=== PATIENT | male | born 1950 | race African-American/Black ===

== ENCOUNTER 2017-10-25 13:14 | Inpatient (IN) | payer MEDICARE, OTHER ==
[~2017-10-25] VITALS: Ht 170.2 cm; Wt 71.2 kg
--- NOTE | 2017-10-25 13:40 | NUR ---
PATIENT TO ED DT LEFT EYE AND TEMPORAL PAIN, DOUBLE/BLURRY VISION SINCE 10/20/17. PATIENT DENIES NAUSEA AND VOMITTING. NO WEAKNESS NOTED. SKIN IS WARM TO TOUCH AND NON DIAPHORETIC. AFEBRILE./ VSS
[2017-10-25 14:54] LABS: BASOPHILS % (AUTO) 0.7 % (0.0-2.0); EOSINOPHILS # (AUTO) 0.2 /CMM (0.0-0.7); EOSINOPHILS % (AUTO) 3.3 % (0.0-6.0); HEMATOCRIT 44 % (39-51); HEMOGLOBIN 14.8 g/dL (13.5-17.5); LYMPHOCYTES # (AUTO) 3.1 /CMM (0.8-4.8); LYMPHOCYTES % (AUTO) 58.5 % (20.0-44.0); MEAN CORPUSCULAR HEMOGLOBIN 30 PG (26.0-33.0); MEAN CORPUSCULAR HGB CONC 34 g/dl (31.0-36.0); MEAN CORPUSCULAR VOLUME 88 fL (80-96); MONOCYTES # (AUTO) 0.3 /CMM (0.1-1.30); MONOCYTES % (AUTO) 4.7 % (2.0-12.0); NEUTROPHILS # (AUTO) 1.8 /CMM (1.8-8.9); NEUTROPHILS % (AUTO) 32.8 % (43.0-81.0); PLATELET COUNT (AUTO) 177 /CMM (150-450); RDW COEFFICIENT OF VARIATION 12.7 (11.5-15.0); WHITE BLOOD COUNT (AUTO) 5.4 K/uL (4.3-11.0)
[2017-10-25] MEDS ORDERED: TETRACAINE HCL/PF 0.5% UD 2 ML BOTTLE OP ONE (15:00)
[2017-10-25] MEDS ORDERED: TETRACAINE HCL/PF 0.5% UD 2 ML BOTTLE ONE (15:17)
[2017-10-25 15:34] LABS: ALANINE AMINOTRANSFERASE 24 U/L (12-78); ALBUMIN 4.2 g/dL (3.4-5.0); ALKALINE PHOSPHATASE 81 U/L (46-116); ASPARTATE AMINOTRANSFERASE 25 U/L (15-37); BILIRUBIN,TOTAL 0.8 mg/dL (0.2-1.0); C-REACTIVE PROTEIN < 0.2 mg/dL (0.0-0.9); CALCIUM, SERUM 9.1 mg/dL (8.5-10.1); CARBON DIOXIDE 30 mmol/L (21-32); CHLORIDE 102 mmol/L (98-107); CREATININE 0.9 mg/dL (0.6-1.3); GLUCOSE 179 mg/dL (74-106); SODIUM SERUM 139 mmol/L (136-145); TOTAL PROTEIN, SERUM 8.7 g/dL (6.4-8.2); UREA NITROGEN, BLOOD 12 mg/dL (7-18)
[2017-10-25] MEDS ORDERED: IOHEXOL-350 100 ML VIAL IV ONE (16:18)
--- NOTE | 2017-10-25 17:09 | NUR ---
TEXTED DR. RUIZ FOR MRI APPROVAL.
--- NOTE | 2017-10-25 17:17 | NUR ---
CALLED PULLING UNIT OPERATOR/TEXTED NO RESPONSE YET.
--- NOTE | 2017-10-25 17:48 | NUR ---
BEHAVIORAL HEALTH TECH WILL BE IN AT 7PM.
--- NOTE | 2017-10-25 18:25 | NUR ---
Patient is resting comfortably in bed with eyes closed. Easily aroused. VSS
--- NOTE | 2017-10-25 18:25 | NUR ---
Patient is resting comfortably in bed with eyes closed. Easily aroused. VSS
--- NOTE | 2017-10-25 19:41 | NUR ---
PT IS BACK FROM MRI
[2017-10-25] MEDS ORDERED: ASPIRIN 81 MG TAB.CHEW ONE (20:59)
[2017-10-25] MEDS ORDERED: ASPIRIN 81 MG TAB.CHEW PO ONE (21:00)
--- NOTE | 2017-10-25 21:32 | NUR ---
REPORT GIVEN TO JOHN ESTRADA FOR CAROLYN
[2017-10-25 21:46] VITALS: BP 154/85
--- NOTE | 2017-10-25 21:58 | NUR ---
PT TRANSPORTED TO [facility]
[2017-10-25 22:00] VITALS: BP 154/85
--- NOTE | 2017-10-25 22:00 | NUR ---
RN NOTES ADMITTED A 67 YEAR OLD MALE FROM ER VIA STRETCHER ACCOMPANIED BY 2 STAFF. NO DISTRESS NOTED. BREATHING EVEN AND UNLABORED. COMPLAINING OF LEFT EYE BLURREDNESS WITH PAIN, ACHING 4/10. ALERT AND ORIENTED, VERBALLY ABLE TO COMMUNICATE NEEDS. AMBULATORY. ON ROOM AIR WITH O2 SATURATION OF 98%. VITAL SIGNS WNL. KEPT CLEAN AND DRY. WILL CONTINUE TO MONITOR.
[2017-10-26] VITALS (9 sets, daily range): BP systolic 112–154; BP diastolic 59–85
[2017-10-26] MEDS ORDERED: MAGNESIUM HYDROXIDE 30 ML UDC PO PRN (00:30)
[2017-10-26] MEDS ORDERED: ZOLPIDEM TARTRATE 5 MG TABLET PO PRN (00:30)
[2017-10-26] MEDS ORDERED: ONDANSETRON HCL/PF 4 MG/2 ML VIAL IVP PRN (00:30)
[2017-10-26] MEDS ORDERED: HYDROCODONE/APAP 5/325MG 1 EACH TABLET PO PRN (00:30)
[2017-10-26] MEDS ORDERED: ACETAMINOPHEN 325 MG TABLET PO PRN (00:30)
[2017-10-26] MEDS ORDERED: Z GUARD REMEDY 2 OZ OINT TP PRN (00:30)
[2017-10-26] MEDS: BLOOD SUGAR DIAGNOSTIC 1 EACH STRIP IN SCH ×4 (05:25→22:26)
[2017-10-26 06:27] LABS: BASOPHILS % (AUTO) 0.9 % (0.0-2.0); EOSINOPHILS # (AUTO) 0.2 /CMM (0.0-0.7); EOSINOPHILS % (AUTO) 4.5 % (0.0-6.0); HEMATOCRIT 42 % (39-51); LYMPHOCYTES # (AUTO) 3.3 /CMM (0.8-4.8); LYMPHOCYTES % (AUTO) 65.6 % (20.0-44.0); MEAN CORPUSCULAR HEMOGLOBIN 30 PG (26.0-33.0); MEAN CORPUSCULAR HGB CONC 34 g/dl (31.0-36.0); MEAN CORPUSCULAR VOLUME 90 fL (80-96); MONOCYTES # (AUTO) 0.3 /CMM (0.1-1.30); NEUTROPHILS # (AUTO) 1.2 /CMM (1.8-8.9); PLATELET COUNT (AUTO) 158 /CMM (150-450); RDW COEFFICIENT OF VARIATION 13.5 (11.5-15.0); RED BLOOD CELL COUNT(AUTO) 4.63 MIL/uL (4.5-6.0)
--- NOTE | 2017-10-26 06:35 | NUR ---
RN CLOSING NOTES RESTING COMFORTABLY IN BED. NO DISTRESS NOTED. PAIN LEVEL WENT DOWN TO 2/10. VITAL SIGNS WNL. NO SIGNIFICANT CHANGE OF CONDITION. WILL ENDORSE TO AM SHIFT FOR CONTINUITY OF CARE.
[2017-10-26 06:51] LABS: CALCIUM, SERUM 8.6 mg/dL (8.5-10.1); POTASSIUM 4.2 mmol/L (3.5-5.1)
[2017-10-26 07:02] LABS: THYROID STIMULATING HORMONE 2.786 uIU/mL (0.358-3.74)
[2017-10-26 07:13] LABS: ALBUMIN 3.4 g/dL (3.4-5.0); BILIRUBIN,TOTAL 0.8 mg/dL (0.2-1.0); TOTAL PROTEIN, SERUM 7.5 g/dL (6.4-8.2)
--- NOTE | 2017-10-26 07:33 | NUR ---
PUBLICITY AGENT OPENING NOTES RECEIVED PT AWAKE IN BED IN NO ACUTE SIGNS OF DISTRESS. A/O X4. ABLE TO MAKE NEEDS KNOWN AND VERBALIZED MILD DISCOMFORTS ON LEFT EYE. PT ON TELE-MONITORING WITH CURRENT READING OF SR AND HR OF 61, NO C/O CHEST PAIN VOICED. ON ROOM AIR, BREATHING EVEN AND UNLABORED. IV ACCESS ON LEFT AC G# 18 INTACT AND PATENT. BED IN LOW AND LOCKED POSITION. CALL LIGHT WITHIN REACH. WILL CONTINUE TO MONITOR PT ACCORDINGLY.
[2017-10-26] MEDS: ASPIRIN 81 MG TAB.CHEW PO SCH (08:42)
[2017-10-26] MEDS ORDERED: CARB15DR3 EACHEYE (10:15)
[2017-10-26] MEDS ORDERED: ATEN50TA PO (10:15)
[2017-10-26] MEDS ORDERED: ASPI-1169 PO (10:15)
--- NOTE | 2017-10-26 13:29 | NUR ---
RN NOTES DR DAVID ON UNIT AND REPORTED THAT PT IS GETTING MEDICATION AT HOME FOR HTN. ASKED HER ALSO IF PT CAN HAVE DVT PROPHYLAXIS AND SAID THAT SHE WILL CHECK, EVALUATE AND TALK TO PT FIRST. WILL FOLLOW-UP
[2017-10-26] MEDS ORDERED: hydrALAZINE HCL 25 MG TABLET PO PRN (15:00)
--- NOTE | 2017-10-26 15:51 | NUR ---
Social service consult requested by TAYLA Curtis for possible stroke. Pt. is a 67 year old male who is alert and oriented x 4. Pt. is cooperative and pleasant with SW during the assessment. Pt. resides alone. Pt. was independent with his ADL's prior to hospitalization. Pt. was also seen by PT and pt. continues to be independent with his ADL's. Pt. denies any depression or anxiety at this time. Pt. appears to be in good spirits. Pt. seems to have impaired vision which limits his ambulation. Pt. will be discharged home once medically cleared since pt. has no skilled needs at this time. No other social service needs are requested at this time. SW is available, if needed.
--- NOTE | 2017-10-26 18:56 | NUR ---
MS RN OPENING NOTES PT AWAKE AND RESTING AT MODERATE HIGH BACKREST IN BED. A/O X4, SAME ABLE TO MAKE NEEDS KNOWN. NO SIGNIFICANT CHANGES OF STATUS NOTED THROUGHOUT THE DAY. ALL NEEDS AND CARE ATTENDED WELL. ON ROOM AIR, BREATHING EVEN AND UNLABORED, NO ACUTE RESPIRATORY DISTRESS NOTED. IV ACCESS ON LEFT AC G# 18 INTACT AND PATENT, FLUSHES WELL. KEPT BED IN LOW AND LOCKED POSITION. CALL LIGHT AND BEDSIDE TABLE WITHIN EASY REACH OF PT.WILL ENDORSED TO SENIOR CORPORATE RECRUITER NURSE FOR CAROLYN. Addendum: 10/26/17 at 1903 by ALAN RIVERO RN ERROR: SHOULD BE MS RN CLOSING NOTES.
--- NOTE | 2017-10-26 19:03 | NUR ---
MS RN CLOSING NOTES PT AWAKE AND RESTING AT MODERATE HIGH BACKREST IN BED. A/O X4, SAME ABLE TO MAKE NEEDS KNOWN. NO SIGNIFICANT CHANGES OF STATUS NOTED THROUGHOUT THE DAY. ALL NEEDS AND CARE ATTENDED WELL. ON ROOM AIR, BREATHING EVEN AND UNLABORED, NO ACUTE RESPIRATORY DISTRESS NOTED. IV ACCESS ON LEFT AC G# 18 INTACT AND PATENT, FLUSHES WELL. KEPT BED IN LOW AND LOCKED POSITION. CALL LIGHT AND BEDSIDE TABLE WITHIN EASY REACH OF PT.WILL ENDORSED TO ELECTRIC MOTOR ASSEMBLER AND TESTER NURSE FOR CAROLYN.
--- NOTE | 2017-10-26 19:25 | NUR ---
MS /VOCATIONAL REHABILITATION TECHNICIAN; RECEIVED PT IN BED AWAKE, ALERT AND ORIENTED COHERENTLY RESPONSIVE. DENIES ANY PAIN. BED ON LOWER POSITION AND LOCKED FOR SAFETY. SIDE RAILS X2 ARE UP FOR SAFETY. WILL CONTINUE TO MONITOR. CALL LIGHT WITHIN REACH.
[2017-10-26] MEDS ORDERED: DEXTROSE 50%-WATER 50 ML DISP.SYRIN IV PRN (22:00)
[2017-10-26] MEDS ORDERED: ATORVASTATIN 10 MG TABLET PO SCH (22:00)
[2017-10-26] MEDS: METFORMIN 500 MG TABLET PO SCH (22:00)
--- NOTE | 2017-10-26 22:00 | NUR ---
MS/BENDER HAND; BS 256 . ON GLUCOPHAGE GIVEN.
--- NOTE | 2017-10-26 22:00 | NUR ---
MS/SEASONAL CLERK; GLUCOPHAGE 500 MG 1 TAB. PO BID NOT GIVEN. INSTEAD THE NEW ORDER OF GLUCOPHAGE 500 MG 1 TAB. PO X 1 WAS GIVEN
--- NOTE | 2017-10-26 22:02 | NUR ---
Patient is alert, he lives alone locally in the upper apartment with no elevator access. Prior to admission, he was ambulatory and independent with adl's. Has no DME or homehealth reported. Current plan is to return home once discharge. Addendum: 10/26/17 at 2203 by DON YOUNG RN Amended: Links added.
[2017-10-26] MEDS ORDERED: METFORMIN 500 MG TABLET PO ONE (22:30)
--- NOTE | 2017-10-27 | NUR ---
MS/TRAY CHECKER; BS 253 COVERAGE REGULAR INSULIN 6 UNITS SQ NOT GIVEN PT REFUSED. ASKING SANDWICH GIVEN.
[2017-10-27] MEDS: BLOOD SUGAR DIAGNOSTIC 1 EACH STRIP IN SCH ×7 (00:08→17:24)
--- NOTE | 2017-10-27 06:30 | NUR ---
MS/BEAN SORTER; BS 223 REGULAR INSULIN 4 UNITS SQ PT REFUSED IT.
[2017-10-27 06:33] LABS: EOSINOPHILS # (AUTO) 0.2 /CMM (0.0-0.7); EOSINOPHILS % (AUTO) 4.6 % (0.0-6.0); HEMATOCRIT 42 % (39-51); HEMOGLOBIN 14.2 g/dL (13.5-17.5); LYMPHOCYTES # (AUTO) 2.9 /CMM (0.8-4.8); LYMPHOCYTES % (AUTO) 65.8 % (20.0-44.0); MEAN CORPUSCULAR HEMOGLOBIN 30 PG (26.0-33.0); MEAN CORPUSCULAR HGB CONC 34 g/dl (31.0-36.0); MEAN CORPUSCULAR VOLUME 89 fL (80-96); MONOCYTES # (AUTO) 0.2 /CMM (0.1-1.30); MONOCYTES % (AUTO) 5.7 % (2.0-12.0); NEUTROPHILS % (AUTO) 22.9 % (43.0-81.0); PLATELET COUNT (AUTO) 151 /CMM (150-450); RDW COEFFICIENT OF VARIATION 13.4 (11.5-15.0); RED BLOOD CELL COUNT(AUTO) 4.71 MIL/uL (4.5-6.0); WHITE BLOOD COUNT (AUTO) 4.4 K/uL (4.3-11.0)
[2017-10-27 06:40] LABS: CALCIUM, SERUM 8.6 mg/dL (8.5-10.1); CREATININE 1.1 mg/dL (0.6-1.3); MAGNESIUM 1.8 mg/dL (1.8-2.4); PHOSPHORUS 2.9 mg/dL (2.5-4.9); POTASSIUM 4.1 mmol/L (3.5-5.1)
--- NOTE | 2017-10-27 07:00 | NUR ---
MS/PULLEY MAINTAINER; SLEPT FAIRLY. DENIES PAIN. BREATHING NON LABORED. PT NO MENTIONED OF BLURRY VISION ON LT EYE. CONTINUE TO MONITOR. WILL ENDORSE TO THE DAY SHIFT NURSE.
--- NOTE | 2017-10-27 07:35 | NUR ---
MS RN OPENING NOTES PT RECEIVED AWAKE AND SITTING ON THE SIDE OF HIS BED. A/O X4, SAME ABLE TO MAKE NEEDS KNOWN. PT STATES THAT HIS LEFT EYE STILL BLURRY WITHOUT PAIN OR DISCOMFORTS. ROOM AIR, BREATHING EVEN AND UNLABORED, NO ACUTE RESPIRATORY DISTRESS NOTED. IV ACCESS ON LEFT AC G# 18 INTACT AND PATENT, FLUSHES WELL. BED IN LOW AND LOCKED POSITION. CALL LIGHT AND BEDSIDE TABLE WITHIN EASY REACH OF PT.WILL CONTINUE TO MONITOR.
[2017-10-27 08:00] VITALS: BP 116/68
[2017-10-27] MEDS: ASPIRIN 81 MG TAB.CHEW PO SCH (08:22)
[2017-10-27] MEDS: METFORMIN 500 MG TABLET PO SCH ×2 (08:23→16:23)
[2017-10-27] MEDS: INSULIN REGULAR, HUMAN 100 UNIT/ML 3 ML VIAL SQ PRN ×2 (12:00→17:27)
[2017-10-27] MEDS ORDERED: SITA50TA PO (15:33)
[2017-10-27] MEDS ORDERED: ATOR40TA PO (15:33)
[2017-10-27] MEDS ORDERED: ASPI-1169 PO (15:33)
[2017-10-27 16:00] VITALS: BP 141/85
--- NOTE | 2017-10-27 18:28 | NUR ---
MS RN DISCHARGED NOTES PATIENT DISCHARGED HOME IN STABLE CONDITION. A/O X4. VERBALLY RESPONSIVE WITH NO COMPLAINTS VOICED DURING DISCHARGE. V/S TAKEN AND RECORDED. SKIN IS INTACT. BELONGINGS CHECKED, COUNTED AND SIGNED FORM. PT STATED THAT HE RECEIVED FLU AND PNA VACCINES LAST 2016. HEALTH TEACHINGS GIVEN AND VERBALIZED UNDERSTANDING. PRESCRIPTION HANDED TO PT. PT LEFT UNIT AT 1815H AMBULATORY ACCOMPANIED TO LOBBY AND IN NO ACUTE SIGNS OF DISTRESS. MD AND CHARGE NURSE AWARE OF DISCHARGE.
== END 2017-10-27 18:20 | disposition home or self-care (01) | DRG 66 ==
LOC: ER 13:16 → TELE 21:40 → MED 10-26 09:21
PROVIDERS: ADMIT Nurse Practitioner Acute Care; ATTEND Nurse Practitioner Acute Care
DX: I63.9 Cerebral infarction, unspecified (principal); H49.22 Sixth [abducent] nerve palsy, left eye; E11.65 Type 2 diabetes mellitus with hyperglycemia; I10 Essential (primary) hypertension; H53.2 Diplopia; E78.5 Hyperlipidemia, unspecified; Z86.73 Personal history of transient ischemic attack (TIA), and cerebral infarction without residual deficits; Z79.82 Long term (current) use of aspirin; I70.0 Atherosclerosis of aorta
CPT/HCPCS: 36415; 70450-TC; 70496-TC; 70551-TC; 80048-TC; 80053-TC; 80061-TC; 82962-TC; 83735-TC; 83880; 84100-TC; 84443-TC; 85025-TC; 85652-TC; 86140-TC; 87081-TC; 93307-TC; 93880-TC; A4606; J1815; Q9967; Z7610

== ENCOUNTER 2021-02-02 20:17 | Inpatient (IN) | payer OTHER ==
[~2021-02-02] VITALS: Ht 170.2 cm; Wt 74.4 kg
[~2021-02-02 20:17] MED LIST: ASPI-1169 PO; ATEN50TA PO; ATOR40TA PO; CARB15DR3 EACHEYE; SITA50TA PO
--- NOTE | 2021-02-02 20:41 | NUR ---
BIBSELF C/O LUQ PAIN X1 MONTH. ALSO C/O CHEST PAIN X1 YEAR. PT AAOX4, VSS. RR EVEN & UNLABORED. DENIES SOB, DIZZINESS, N/V, ARM/JAW PAIN AT THIS TIME. DR. AVILES AT BS. PLACED ON VACUUM TRUCK DRIVER, SR. WILL CONT TO MONITOR
[2021-02-02 21:00] LABS: CALCIUM, SERUM 8.9 mg/dL (8.5-10.1); CREATININE 0.9 mg/dL (0.6-1.3); POTASSIUM 3.8 mmol/L (3.5-5.1)
[2021-02-02] MEDS ORDERED: BISACODYL SUPP (10 MG) 10 MG/SUPP.RECT SUPP.RECT RC ONE (21:00)
[2021-02-02 21:03] LABS: BASOPHILS # (AUTO) 0.1 /CMM (0.0-0.2); BASOPHILS % (AUTO) 1.1 % (0.0-2.0); EOSINOPHILS % (AUTO) 5.9 % (0.0-6.0); HEMATOCRIT 44 % (39-51); HEMOGLOBIN 14.4 g/dL (13.5-17.5); LYMPHOCYTES # (AUTO) 3.3 /CMM (0.8-4.8); LYMPHOCYTES % (AUTO) 56.6 % (20.0-44.0); MEAN CORPUSCULAR HGB CONC 33 g/dl (31.0-36.0); MEAN CORPUSCULAR VOLUME 90 fL (80-96); MONOCYTES # (AUTO) 0.3 /CMM (0.1-1.30); MONOCYTES % (AUTO) 4.5 % (2.0-12.0); NEUTROPHILS # (AUTO) 1.9 /CMM (1.8-8.9); NEUTROPHILS % (AUTO) 31.9 % (43.0-81.0); PLATELET COUNT (AUTO) 149 /CMM (150-450); RED BLOOD CELL COUNT(AUTO) 4.85 MIL/uL (4.5-6.0); WHITE BLOOD COUNT (AUTO) 5.9 K/uL (4.3-11.0)
[2021-02-02 21:06] LABS: ALBUMIN 4.1 g/dL (3.4-5.0); BILIRUBIN,DIRECT 0.1 mg/dL (0.0-0.2); BILIRUBIN,TOTAL 0.4 mg/dL (0.2-1.0); TOTAL PROTEIN, SERUM 8.6 g/dL (6.4-8.2)
[2021-02-02] MEDS ORDERED: ASPIRIN 325 MG TABLET ONE (21:45)
[2021-02-02] MEDS ORDERED: ASPIRIN 325 MG TABLET PO ONE (22:00)
[2021-02-02] MEDS ORDERED: NITROGLYCERIN PACKET 1 GM PACKET TOP ONE (22:00)
[2021-02-02] MEDS ORDERED: NITROGLYCERIN PACKET 1 GM PACKET ONE (22:01)
--- NOTE | 2021-02-02 22:12 | NUR ---
MEDICATED PER ERMD ORDER, PT KATHY WELL.
--- NOTE | 2021-02-02 23:32 | NUR ---
CALLED NURSING SUP FOR BED
--- NOTE | 2021-02-02 23:39 | NUR ---
RADHA TORRES SPEAKING TO DR AGUILA REGARDING ADMISSION.
--- NOTE | 2021-02-03 00:11 | NUR ---
REPORT GIVEN TO ISAIAH LOPEZ FOR CAROLYN
[2021-02-03] MEDS ORDERED: ONDANSETRON HCL/PF 4 MG/2 ML VIAL IVP PRN (00:30)
[2021-02-03] MEDS ORDERED: hydrALAZINE HCL 25 MG TABLET PO PRN (00:30)
[2021-02-03] MEDS ORDERED: ACETAMINOPHEN 325 MG TABLET PO PRN (00:30)
[2021-02-03] MEDS ORDERED: MAGNESIUM HYDROXIDE 30 ML UDC PO PRN (00:30)
[2021-02-03] MEDS ORDERED: MORPHINE SULFATE INJ 2 MG/ML DISP.SYRIN IV PRN (00:30)
[2021-02-03] MEDS ORDERED: ZOLPIDEM TARTRATE 5 MG TABLET PO PRN (00:30)
[2021-02-03 00:45] VITALS: BP 142/70
--- NOTE | 2021-02-03 00:45 | NUR ---
TELE/RN ADMITTING NOTE RECEIVED REPORT FROM CHAINSTITCH HEMMER MARTHA. PATIENT ARRIVED TO UNIT VIA GURNEY AND 2 STAFF MEMBERS. PATIENT ACCOMPANIED TO ROOM 118-1. PATIENT IS ALERT AND ORIENTED X 4. ABLE TO MAKE NEEDS KNOWN. NO COMPLAINTS OF PAIN AT THIS TIME. IV ACCESS TO RIGHT FOREARM #20G INTACT, PATENT AND SALINE FLUSHED. VS ON ADMISSION: BP 142/70 HR 55 RR 18 T 98.6 O2 SAT 100% ON ROOM AIR. NO S/SX OF RESPIRATORY DISTRESS NOTED. NO C/O SOB, CHEST PAIN OR WEAKNESS. TELE MONITOR READING SR 61. SKIN CHECK PERFORMED ON ADMISSION WITH NO SKIN ISSUES NOTED. PATIENT ORIENTED TO CALL LIGHT, ROOM AND UNIT. CALL LIGHT WITHIN REACH. ASPIRATION, FALL AND SAFETY PRECAUTIONS MAINTAINED. WILL CONTINUE TO MONITOR.
--- NOTE | 2021-02-03 01:44 | NUR ---
TELE/RN NOTE TELE MONITOR CURRENTLY READING SINUS BRADYCARDIA WITH HR 55. NO S/SX OF SOB, CHEST PAIN, CHANGE IN MENTAL STATUS. PATIENT CURRENTLY RESTING IN BED. WILL CONTINUE TO MONITOR.
[2021-02-03 06:15] LABS: BASOPHILS # (AUTO) 0.1 /CMM (0.0-0.2); BASOPHILS % (AUTO) 1.3 % (0.0-2.0); EOSINOPHILS % (AUTO) 5.6 % (0.0-6.0); HEMATOCRIT 41 % (39-51); HEMOGLOBIN 13.7 g/dL (13.5-17.5); LYMPHOCYTES # (AUTO) 2.4 /CMM (0.8-4.8); LYMPHOCYTES % (AUTO) 50.5 % (20.0-44.0); MEAN CORPUSCULAR HGB CONC 33 g/dl (31.0-36.0); MEAN CORPUSCULAR VOLUME 90 fL (80-96); MONOCYTES # (AUTO) 0.2 /CMM (0.1-1.30); MONOCYTES % (AUTO) 5.1 % (2.0-12.0); NEUTROPHILS # (AUTO) 1.8 /CMM (1.8-8.9); NEUTROPHILS % (AUTO) 37.5 % (43.0-81.0); PLATELET COUNT (AUTO) 124 /CMM (150-450); RED BLOOD CELL COUNT(AUTO) 4.61 MIL/uL (4.5-6.0); WHITE BLOOD COUNT (AUTO) 4.8 K/uL (4.3-11.0)
--- NOTE | 2021-02-03 06:44 | NUR ---
TELE/RN CLOSING NOTE PATIENT CURRENTLY SLEEPING IN BED. ALERT AND ORIENTED X 4. ABLE TO MAKE NEEDS KNOWN. NO COMPLAINTS OF PAIN AT THIS TIME. IV ACCESS TO RIGHT FOREARM INTACT, PATENT AND SALINE FLUSHED. NO S/SX OF SOB, CHEST PAIN OR CHANGE IN MENTAL STATUS. CONTINUES ON ROOM AIR WITH NO S/SX OF RESPIRATORY DISTRESS NOTED. TELE MONITOR READING SR 72. CALL LIGHT WITHIN REACH. ASPIRATION, FALL AND SAFETY PRECAUTIONS MAINTAINED. WILL ENDORSE PLAN OF CARE TO ONCOMING SHIFT.
[2021-02-03] MEDS ORDERED: DEXTROSE 50%-WATER 50 ML DISP.SYRIN IV PRN (07:00)
[2021-02-03 07:14] LABS: ALBUMIN 3.6 g/dL (3.4-5.0); BILIRUBIN,TOTAL 0.8 mg/dL (0.2-1.0); CALCIUM, SERUM 8.6 mg/dL (8.5-10.1); CREATININE 0.8 mg/dL (0.6-1.3); MAGNESIUM 1.8 mg/dL (1.8-2.4); POTASSIUM 3.9 mmol/L (3.5-5.1); THYROID STIMULATING HORMONE 2.034 uIU/mL (0.358-3.74); TOTAL PROTEIN, SERUM 7.5 g/dL (6.4-8.2)
--- NOTE | 2021-02-03 07:15 | NUR ---
RN OPENING NOTE RECEIVED PT RESTING IN BED. AWAKE, A/O X4. STABLE ON ROOM AIR. NO SOB OR S/SX OF RESPIRATORY DISTRESS. IV ACCESS AT RFA #20 INTACT, PATENT AND FLUSHED. NO CHEST PAIN REPORTED. DENIES ANY PAIN. TELE MONITOR READING SR. SKIN IS INTACT. SAFETY PRECAUTIONS IMPLEMENTED. CALL LIGHT WITHIN REACH. BED LOCKED AND IN LOWEST POSITION WITH SIDE RAILS UP X2. WILL CONTINUE TO MONITOR.
[2021-02-03] MEDS ORDERED: PANTOPRAZOLE 40 MG TABLET.DR PO SCH (07:30)
[2021-02-03] MEDS: BLOOD SUGAR DIAGNOSTIC 1 EACH STRIP IN SCH ×2 (07:30→12:07)
[2021-02-03 08:00] VITALS: BP 138/69
[2021-02-03 08:40] VITALS: BP 136/69
[2021-02-03] MEDS: INSULIN REGULAR, HUMAN 100 UNIT/ML 3 ML VIAL SQ PRN ×3 (08:52→12:07)
[2021-02-03] MEDS ORDERED: ASPIRIN 81 MG TAB.CHEW PO SCH (09:00)
[2021-02-03] MEDS ORDERED: DOCUSATE SODIUM 100 MG CAPSULE PO SCH (09:00)
[2021-02-03] MEDS ORDERED: ATENOLOL 50 MG TABLET PO SCH (09:00)
[2021-02-03] MEDS ORDERED: LINAGLIPTIN 5 MG TABLET PO SCH (09:00)
[2021-02-03] MEDS ORDERED: ASPIRIN EC 325 MG TABLET.DR PO SCH (09:00)
--- NOTE | 2021-02-03 09:24 | NUR ---
RN NOTES BLOOD SUGAR OF 263. REFUSED INSULIN DESPITE EDUCATION X3. REQUESTING TO SPEAK TO MD FIRST.
--- NOTE | 2021-02-03 12:16 | NUR ---
RN NOTES BS OF 226, REFUSING INSULIN COVERAGE DESPITE EDUCATION X3. MD AWARE.
--- NOTE | 2021-02-03 14:43 | NUR ---
RN CLOSING NOTES ACCOMPANIED PT TO THE LOBBY. PT WENT HOME IN STABLE CONDITION. DENIES PAIN. NO SOB OR ANY DISTRESS. SKIN IS INTACT. VACCINATIONS ALL UP TO DATE. DISCHARGE EDUCATION GIVEN TO PT, VERBALIZED UNDERSTANDING. BELONGING LIST SIGNED.
[2021-02-03] MEDS ORDERED: ATORVASTATIN 40 MG TABLET PO SCH (22:00)
== END 2021-02-03 14:38 | disposition home or self-care (01) | DRG 282 ==
LOC: ER 20:32 → TELE1 23:44
PROVIDERS: ADMIT Internal Medicine; ATTEND Nurse Practitioner Acute Care
DX: I21.4 Non-ST elevation (NSTEMI) myocardial infarction (principal); I16.0 Hypertensive urgency; E11.65 Type 2 diabetes mellitus with hyperglycemia; D69.6 Thrombocytopenia, unspecified; E78.5 Hyperlipidemia, unspecified; Z86.73 Personal history of transient ischemic attack (TIA), and cerebral infarction without residual deficits; Z79.82 Long term (current) use of aspirin; Z79.899 Other long term (current) drug therapy; Z79.84 Long term (current) use of oral hypoglycemic drugs; I11.0 Hypertensive heart disease with heart failure; I50.9 Heart failure, unspecified; E11.51 Type 2 diabetes mellitus with diabetic peripheral angiopathy without gangrene; Z20.822 Contact with and (suspected) exposure to COVID-19
CPT/HCPCS: 36415; 71045-TC; 80048-TC; 80053-TC; 80061-TC; 80076-TC; 82962-TC; 83690-TC; 83735-TC; 83880; 84100-TC; 84443-TC; 84484-TC; 85025-TC; 87081-TC; 93307-TC; C9803; G0378; J1815

== ENCOUNTER 2021-04-15 11:12 | Inpatient (IN) | payer MEDICARE, OTHER ==
[~2021-04-15] VITALS: Ht 170.2 cm; Wt 70.5 kg
[2021-04-15 11:20] VITALS: BP 151/91
--- NOTE | 2021-04-15 11:25 | NUR ---
diffuse abdominal pain/distension r/t L side of chest for months. Patient a/ox4, breathing even and unlabored, no sob noted, needs attended.
--- NOTE | 2021-04-15 11:35 | NUR ---
iv line established, blood drawn and sent to lab.
[2021-04-15 11:42] LABS: BASOPHILS # (AUTO) 0.1 K/uL (0.0-0.2); BASOPHILS % (AUTO) 2.5 % (0.0-2.0); EOSINOPHILS % (AUTO) 6.4 % (0.0-6.0); HEMATOCRIT 40 % (39-51); HEMOGLOBIN 13.3 g/dL (13.5-17.5); LYMPHOCYTES # (AUTO) 2.9 K/uL (0.8-4.8); LYMPHOCYTES % (AUTO) 51.5 % (20.0-44.0); MEAN CORPUSCULAR HGB CONC 34 g/dl (31.0-36.0); MEAN CORPUSCULAR VOLUME 89 fL (80-96); MONOCYTES # (AUTO) 0.3 K/uL (0.1-1.30); MONOCYTES % (AUTO) 5.2 % (2.0-12.0); NEUTROPHILS # (AUTO) 1.9 K/uL (1.8-8.9); NEUTROPHILS % (AUTO) 34.4 % (43.0-81.0); PLATELET COUNT (AUTO) 169 K/uL (150-450); RED BLOOD CELL COUNT(AUTO) 4.47 MIL/uL (4.5-6.0); WHITE BLOOD COUNT (AUTO) 5.6 K/uL (4.3-11.0)
[2021-04-15 12:08] LABS: CALCIUM, SERUM 8.9 mg/dL (8.5-10.1); POTASSIUM 4.3 mmol/L (3.5-5.1)
[2021-04-15 12:11] LABS: ALBUMIN 4.3 g/dL (3.4-5.0); BILIRUBIN,DIRECT 0.2 mg/dL (0.0-0.2); BILIRUBIN,TOTAL 0.9 mg/dL (0.2-1.0); TOTAL PROTEIN, SERUM 8.4 g/dL (6.4-8.2)
[2021-04-15] MEDS ORDERED: ASPIRIN 81 MG TAB.CHEW ONE (12:23)
[2021-04-15] MEDS ORDERED: FINA5TAB11 PO (12:24)
[2021-04-15] MEDS ORDERED: METO-357 PO (12:24)
[2021-04-15] MEDS ORDERED: TAMS-12 PO (12:24)
[2021-04-15] MEDS ORDERED: MELO-107 PO (12:24)
--- NOTE | 2021-04-15 12:27 | NUR ---
ASPIRIN 325MG CHANGED TO 243MG, PATIENT ALREADY TOOK ASA 81MG THIS AM. DR. GARCIA AWARE
[2021-04-15] MEDS ORDERED: NITROGLYCERIN PACKET 1 GM PACKET TD ONE (12:30)
[2021-04-15] MEDS ORDERED: ASPIRIN 325 MG TABLET PO ONE (12:30)
[2021-04-15] MEDS ORDERED: ASPIRIN 81 MG TAB.CHEW PO ONE (12:30)
[2021-04-15] MEDS ORDERED: NITROGLYCERIN PACKET 1 GM PACKET ONE (12:31)
--- NOTE | 2021-04-15 12:37 | NUR ---
ATILIO SENT TO LAB.
--- NOTE | 2021-04-15 12:57 | NUR ---
MOVE SHEET SUBMITTED.
--- NOTE | 2021-04-15 14:34 | NUR ---
patient resting, denies pain at this time. NSR on the monitor. Will continue to monitor.
--- NOTE | 2021-04-15 14:40 | NUR ---
DR. ESCALERA SPEAKING TO DR. COE.
--- NOTE | 2021-04-15 14:50 | NUR ---
ASKED FOR BED ASSIGNMENT
[2021-04-15] MEDS ORDERED: ONDANSETRON HCL/PF 4 MG/2 ML VIAL IVP PRN (15:00)
[2021-04-15] MEDS ORDERED: NITROGLYCERIN 0.4 MG/TAB BOTTLE SL PRN (15:00)
--- NOTE | 2021-04-15 15:42 | NUR ---
NO BED AVAILABLE AT THIS TIME. PATIENT IS RESTING. NO DISTRESS NOTED. NEEDS ATTENDED. PROVIDED FOOD TRAY.
--- NOTE | 2021-04-15 16:36 | NUR ---
GOT BED 309-2 RAY RN
--- NOTE | 2021-04-15 16:49 | NUR ---
REPORT GIVEN TO GRADY LOPEZ FOR CAROLYN.
--- NOTE | 2021-04-15 17:20 | NUR ---
PATIENT TRANSFERRED TO ROOM 309-2 VIA ACLS PROTOCOL, PATIENT A/OX4, IN STABLE CONDITION. AMBULATORY WITH STEADY GAIT. NO DISTRESS NOTED. ENDORSED TO GRADY LOPEZ.
[2021-04-15] MEDS: ATORVASTATIN 40 MG TABLET PO SCH (17:31)
--- NOTE | 2021-04-15 18:21 | NUR ---
THREAD TOOL GRINDER SET UP OPERATORORACLE ASCP CONSULTANT/CLOSING NOTES PT ADMITTED TO UNIT AT 1720 VIA BHAVESH ACCOMPANIED CECI SHEIKH. PT IS A/O X4. ABLE TO MAKE NEEDS KNOWN, NO C/O CP AT THIS TIME. PT ORIENTED TO STAFF AND ROOM. AMBULATORY WITH STEADY GAIT. V/S CHECKED AND RECORDED. PT WITH ADMITTING DX OF NSTEMI. PT HAS NO SKIN IMPAIRMENTS. IV ACCESS ON RAC G#18 AND FLUSHES WELL. LUNGS CLEAR ON AUSCULTATION. POSITIVE BOWELS SOUNDS PRESENTS. PT PLACED ON TELEMONITOR WITH CURRENT READING OF NSR, HR ON THE 70'S, NO C/O CARDIAC DISTRESS VOICED AT THIS TIME. SAFETY MEASURES INITIATED: BED PLACED IN LOWEST LOCKED POSITION WITH SIDE-RAILS UPO X2. CALL LIGHT W/IN EASY REACH OF PT. WILL ENDORSE CAROLYN TO OPERATIONS SYSTEMS SPECIALIST NURSE.
--- NOTE | 2021-04-15 19:45 | NUR ---
SUGAR GRINDER OPENING NOTES Patient is A&Ox4. VSS. Denies pain or discomfort at this time. In no distress. Patient is calm, cooperative, and pleasant. Able to make needs known. Sinus rhythm on the tele monitor. Will monitor closely.
[2021-04-15 20:00] VITALS: BP 154/93
[2021-04-16] VITALS: BP 123/75
[2021-04-16 04:00] VITALS: BP 144/80
[2021-04-16 05:59] LABS: BASOPHILS # (AUTO) 0.1 K/uL (0.0-0.2); BASOPHILS % (AUTO) 1.3 % (0.0-2.0); EOSINOPHILS % (AUTO) 6.4 % (0.0-6.0); HEMATOCRIT 39 % (39-51); HEMOGLOBIN 12.9 g/dL (13.5-17.5); LYMPHOCYTES # (AUTO) 2.6 K/uL (0.8-4.8); LYMPHOCYTES % (AUTO) 53.5 % (20.0-44.0); MEAN CORPUSCULAR HGB CONC 33 g/dl (31.0-36.0); MEAN CORPUSCULAR VOLUME 89 fL (80-96); MONOCYTES # (AUTO) 0.3 K/uL (0.1-1.30); MONOCYTES % (AUTO) 5.6 % (2.0-12.0); NEUTROPHILS # (AUTO) 1.6 K/uL (1.8-8.9); NEUTROPHILS % (AUTO) 33.2 % (43.0-81.0); PLATELET COUNT (AUTO) 149 K/uL (150-450); RED BLOOD CELL COUNT(AUTO) 4.36 MIL/uL (4.5-6.0); WHITE BLOOD COUNT (AUTO) 4.8 K/uL (4.3-11.0)
[2021-04-16 06:33] LABS: CALCIUM, SERUM 8.6 mg/dL (8.5-10.1); CREATININE 0.9 mg/dL (0.6-1.3); PHOSPHORUS 3.3 mg/dL (2.5-4.9)
--- NOTE | 2021-04-16 06:54 | NUR ---
DIRECTOR OF MANAGED SERVICES CLOSING NOTES Patient has been A&Ox4. VSS throughout night. SB/SR on monitor 55-70. States that he only felt a "couple twitches" of chest pain throughout the night but feels no pain currently. Been NPO since midnight for Possible CTCA in AM.
--- NOTE | 2021-04-16 08:10 | NUR ---
SALES AGENT CASUALTY INSURANCE OPENING NOTES RECEIVED PATIENT IN BED, AWAKE, A/O X4. PATIENT ON ROOM AIR; BREATHING EVEN AND UNLABORED AT THIS TIME. TELE MONITOR WITH A CURRENT READING OF SR 72. NO COMPLAINS OF PAIN AT THIS TIME. IV ACCESS ON RAC G #18 PRESENT AND INTACT; SL. SAFETY PRECAUTIONS IN PLACE; BED IN LOW POSITION AND LOCKED, RAILS UP X2, CALL LIGHT WITHIN REACH. WILL CONTINUE TO MONITOR PATIENT.
[2021-04-16 08:17] VITALS: BP 138/80
[2021-04-16] MEDS ORDERED: METOPROLOL SUCCINATE 50 MG TAB.SR.24H PO SCH (09:00)
[2021-04-16] MEDS ORDERED: LINAGLIPTIN 5 MG TABLET PO SCH (09:00)
[2021-04-16] MEDS ORDERED: ASPIRIN 81 MG TAB.CHEW PO SCH (09:00)
--- NOTE | 2021-04-16 11:19 | NUR ---
TECHNOLOGY DEVELOPMENT INTERN NOTES PATIENT COMPLAINING THAT IN THE LAST FEW DAYS HIS ABDOMINAL GIRTH GOT BIGGER AND ITIS MORE SWOLLEN. HE IS VERY CONCERNED ABOUT THIS AND WOULD LIKE TO SEE IF ANYTHING COULD BE DONE. MD CONTACTED AND MADE AWARE. PER MD WILL ORDER SOME TESTS FOR THE PATIENT.
[2021-04-16] MEDS: METOPROLOL TARTRATE 50 MG TABLET PO SCH ×2 (12:00→17:08)
[2021-04-16 12:02] VITALS: BP 151/93
--- NOTE | 2021-04-16 12:09 | NUR ---
GREETING CARD MAKER NOTES PATIENT REFUSED 1200 METOPROLOL. EXPLAINED TO PATIENT THAT BP IS ELEVATED AND HE WOULD BENEFIT FROM MEDICATION. PER PATIENT HE ONLY TAKES THREE MEDICATIONS DURING THE DAY AND DOES NOT TAKE BP MEDS, THEY MAKE HIM FEEL DIZZY. PATIENT SAID HE WILL JUST WAIT FOR HIS PROCEDURES AND NOT TAKE THE MEDICATION.
--- NOTE | 2021-04-16 13:33 | NUR ---
ROTARY ROCK DRILLING MACHINE OPERATOR NOTES PATIENT PICKED UP FOR CT ANGIO
[2021-04-16] MEDS ORDERED: IOHEXOL-350 100 ML VIAL IV ONE ×2 (15:28→16:01)
[2021-04-16] MEDS ORDERED: NITROGLYCERIN 0.4 MG/TAB BOTTLE ONE (15:28)
[2021-04-16] MEDS ORDERED: METOPROLOL TARTRATE INJ 5 MG/5 ML AMPUL ONE ×4 (15:29→16:08)
[2021-04-16] MEDS ORDERED: CT SWABBABLE VALVE TRANS SET 1 EA INFUS.SET MC ONE (15:29)
[2021-04-16] MEDS ORDERED: IV NS 0.9% 250 ML IV ONE (15:29)
[2021-04-16] MEDS ORDERED: IV NS 0.9% 500 ML IV ONE (15:30)
[2021-04-16] MEDS ORDERED: METOPROLOL TARTRATE INJ 5 MG/5 ML AMPUL IVP ONE (15:30)
[2021-04-16] MEDS ORDERED: NITROGLYCERIN 4.9 GM SPRAY SL ONE (15:30)
[2021-04-16 15:59] VITALS: BP 150/70
--- NOTE | 2021-04-16 16:30 | NUR ---
RN NOTE CTA done, VSS. Given 5 doses of Metoprolol 5mg during CTA procedure, no Nitro given. Noted infiltrated RAC PIV during dye administration. PLaced new PIC on LAC g18. Endorsed to Farzaneh LOPEZ
[2021-04-16 16:59] VITALS: BP 152/86
[2021-04-16] MEDS: ATORVASTATIN 40 MG TABLET PO SCH (17:08)
--- NOTE | 2021-04-16 18:38 | NUR ---
CANVASSING MANAGERHIGHWAY CONSTRUCTION INSPECTOR NOTES PATIENT DISCHARGED HOME IN MEDICALLY STABLE CONDITION. PATIENT A/O X4, ON ROOM AIR, ABLE TO MAKE NEEDS KNOWN. ALL DISCHARGE PAPERWORK READY AND TEACHING PROVIDED TO PATIENT REGARDING PHYSICIAN ORDERS AND MEDICATIONS; PATIENT VERBALIZED UNDERSTANDING. BELONGINGS ACCOUNTED FOR AND FORM SIGNED WELL. SKIN INTACT. PATIENT REQUESTED CD; CD PROVIDED BY RADIOLOGY. IV ACCESS REMOVED PRIOR PATIENT LEAVING THE UNIT. WRISTBAND REMOVED WELL. PATIENT LEFT THE FLOOR AT 1825 ACCOMPANIED BY DYED RAW STOCK BLOWER FEEDER AND LEFT IN A PRIVATE CAR.
== END 2021-04-16 18:18 | disposition home or self-care (01) | DRG 282 ==
LOC: ER 11:20 → TELE 16:43
PROVIDERS: ADMIT Internal Medicine; ATTEND Internal Medicine
DX: I21.4 Non-ST elevation (NSTEMI) myocardial infarction (principal); I16.0 Hypertensive urgency; Z86.73 Personal history of transient ischemic attack (TIA), and cerebral infarction without residual deficits; E78.5 Hyperlipidemia, unspecified; Z79.82 Long term (current) use of aspirin; Z79.84 Long term (current) use of oral hypoglycemic drugs; E11.65 Type 2 diabetes mellitus with hyperglycemia; Z20.822 Contact with and (suspected) exposure to COVID-19; Z86.69 Personal history of other diseases of the nervous system and sense organs
CPT/HCPCS: 36415; 71045-TC; 75574; 80048-TC; 80061-TC; 80076-TC; 83735-TC; 84100-TC; 84484-TC; 85025-TC; 87081-TC; 93307-TC; C9803; G0378; J3490; J7050; Q9967